=== PATIENT | female | born 1965 | race Caucasian/White ===

== ENCOUNTER 2020-02-11 06:35 | Emergency (ER) | payer BC ==
--- NOTE | 2020-02-11 07:48 | CT ---
CT head noncontrast HISTORY: Headache. Left arm tingling. FINDINGS: No comparison. There is no evidence of acute intracranial hemorrhage or infarct. The ventri cles appear normal in size, shape and position. Old lacunar infarcts at the left basal ganglia. Mild chronic ischemic small vessel disease. There is no mass effect or shift of midline structures. Mild mucosal thickening in the ethmoid air cells and sphenoid sinus. IMPRESSION : Evidence of chronic ischemic small vessel disease. No acute intracranial abnormalities are demonstrat ed.
--- NOTE | 2020-02-11 07:52 | RAD ---
EXAM: Single view of the chest HISTORY: Neck and chest pain COMPARISON: None FINDINGS: Single view of the chest shows a normal sized cardiomediastinal silhouette. There is no brandee dence of consolidation, mass, or pleural effusion. The bones are unremarkable IMPRESSION: No evidence of acute cardiopulmonary disease
--- NOTE | 2020-02-11 07:58 | CT ---
CT CERVICAL SPINE NONCONTRAST: DATE: 02/11/2020 HISTORY: 54-year-old female with cervical radiculopathy: Left upper extremity paresthesia, and cervicalgia FINDINGS: There are no jumped or perched facets. There is no evidence of acute fracture. The vertebral body hei ghts are maintained. There is no prevertebral soft tissue swelling. The cervical spinal canal is generous in caliber throughout all levels. No high-grade facet DJD. There are small to moderate-sized uncinate process osteophytes at lower levels encroaching upon neural foramina, causing mild to moderate neural foraminal stenosis on the left. No severe neural foraminal stenosis identified. For c ervical radiculopathy, MRI should be considered. IMPRESSION: 1. No evidence of acute fracture or acute traumatic subluxation. 2. No high-grade central spinal canal stenosis.
[2020-02-11] MEDS ORDERED: Acetaminophen 500 MG TAB ONE (08:10)
[2020-02-11] MEDS ORDERED: Ketorolac Tromethamine 30 MG/ML VIAL ONE (08:10)
[2020-02-11 08:20] LABS: #Basophils 0.1 thou/uL (0.0-0.2); #Eosinphils 0.3 thou/uL (0.0-0.7); #Lymphocytes 1.5 thou/uL (1.20-3.40); #Monocytes 0.5 thou/uL (0.11-0.59); #Neutrophils 7.9 thou/uL (1.40-6.50); %Basophils 1.4 % (0.0-1.0); %Eosinophils 2.5 % (0.0-10.0); %Lymphocytes 14.2 % (21.0-51.0); %Monocytes 4.7 % (0.0-10.0); %Neutrophils 77.2 % (42.0-75.0); Hemoglobin 13.6 g/dL (12.0-16.0); Mean Corpuscular HGB CONC 32.4 g/dL (32.0-36.0); Mean Corpuscular Hemoglobin 30.8 pg (27.0-31.0); Mean Corpuscular Volume 95.1 fL (78.0-98.0); Platelet Count 255 thou/uL (130-400); RBC Distribution Width 11.4 % (11.5-14.5); Red Blood Cell (RBC) Count 4.43 mill/uL (4.20-5.40); White Blood Cell (WBC) Count 10.2 thou/uL (4.8-10.8)
[2020-02-11 08:33] LABS: ALT (SGPT) 17 U/L (8-55); AST (SGOT) 22 U/L (5-34); Albumin 4.2 g/dL (3.5-5.0); Alkaline Phosphatase 55 U/L (40-110); Anion Gap 14 mmol/L (10-20); BUN (Urea Nitrogen) 13 mg/dL (9.8-20.1); Bilirubin, Total 0.4 mg/dL (0.2-1.2); Calc. Creatinine Clearance 0 mL/min (70-130); Calcium 9.3 mg/dL (7.8-10.44); Carbon Dioxide 24 mmol/L (22-29); Chloride 107 mmol/L (98-107); Estimated GFR-MDRD 76; Globulin 2.5 g/dL (2.4-3.5); Glucose 93 mg/dL (70-105); Protein, Total 6.7 g/dL (6.0-8.3); Sodium 141 mmol/L (136-145)
== END 2020-02-11 08:45 | disposition home or self-care (01) ==
LOC: NAV ERS 06:35
DX: S13.9XXA Sprain of joints and ligaments of unspecified parts of neck, initial encounter (principal); M62.830 Muscle spasm of back; I10 Essential (primary) hypertension; X50.0XXA Overexertion from strenuous movement or load, initial encounter
CPT/HCPCS: 70450; 71045; 72125; 80053; 84484; 85025; 93005; 96374; J1885